=== PATIENT | female | born 1960 | race Caucasian/White ===

== ENCOUNTER 2017-05-20 15:08 | Emergency (ER) | payer OTHER ==
[2017-05-20] MEDS ORDERED: Ondansetron INJ* 2 MG/ML VIAL IV ONE (16:05)
[2017-05-20] MEDS ORDERED: Ketorolac INJ* 30 MG/ML 1 ML VIAL IV PUSH ONE (16:05)
[2017-05-20] MEDS ORDERED: NS 0.9% 1000 ML* 1,000 ML IV ONE ×2 (16:05)
[2017-05-20 16:32] LABS: ABS Basophils 0 10^3/ul (0-0.2); ABS Eosinophils 0 10^3/ul (0-0.6); ABS Lymphocytes 0.6 10^3/ul (1.0-4.8); ABS Monocytes 0.7 10^3/ul (0-0.8); ABS Nucleated RBC 0 10^3/ul; Eosinophil % 0.1 % (0-6); Hematocrit 34 % (35-47); Hemoglobin 11.6 g/dl (12.0-16.0); Lymphocyte % 6.8 % (25-47); Mean Corpuscular HGB Conc 34 g/dl (31-36); Mean Corpuscular Hemoglobin 31 pg (27-31); Mean Corpuscular Volume 90 fL (80-97); Mean Platelet Volume 7 um3 (7.4-10.4); Nucleated Red Blood Cells % 0; Platelet Count 224 10^3/ul (150-450); Red Blood Count 3.77 10^6/ul (4.0-5.4); Red Cell Distribution Width 13 % (10.5-15); White Blood Count 9.4 10^3/ul (3.5-10.8)
[2017-05-20 16:47] LABS: EGFR Non-African American 75.8 (>60)
--- NOTE | 2017-05-20 17:06 | RAD ---
INDICATION: Cough, history of lung cancer. COMPARISON: Comparison is made with a prior chest x-ray study from October 29, [address] of the chest from June 14, 2016. TECHNIQUE: Dual-energy PA and lateral views of the chest were obtained. FINDINGS: There is a power port central venous catheter present on the right side. The catheter tip projects over the region of the superior vena cava. The heart is within normal limits in size. There are extensive postsurgical changes present in the upper portion of the right hemithorax which appears similar to the prior exam. There there is increased density in that region and a small air-fluid level at the right lung apex which is unchanged. There is increased density at the left lung apex which appears similar to the prior CT likely representing apical pleural-parenchymal scarring. The left lung otherwise appears clear. No pleural effusion is seen. IMPRESSION: POSTSURGICAL CHANGES, NO EVIDENCE FOR ACUTE FINDING.
[2017-05-20] MEDS ORDERED: Albuterol/Ipratropium NEB.SOL* Albuterol 2.5 MG/Ipratropium 0.5 MG 3 ML INH ONE (17:15)
[2017-05-20 18:14] LABS: Urine Appearance Clear; Urine Blood 1+ (Negative); Urine Color Yellow; Urine Ketones 1+ (Negative); Urine Protein 1+(30 mg/dL) (Negative); Urine Specific Gravity 1.026 (1.010-1.030); Urine Urobilinogen Negative (Negative)
[2017-05-20 19:22] VITALS: BP 92/45
--- NOTE | 2017-05-28 01:01 | ED ---
Lucas Camargo Natalie, scribed for Rashid Seymour MD on 05/20/17 at 1617 . Influenza-Like Illness - HPI Summary HPI Summary: The pt is a 56 y/o F presenting to the ED c/o weakness and fever of 102F for three days. The pain is rated 9/10 in severity Pt additionally c/o body aches, coughing, back pain, sore throat, runny nose, and chills. Pt denies SOB and ear pain. She did not have a flu vaccine this year. Pt has hx of lung cancer (six years clear), where she had half of her right lung removed. She takes Oxycodone and Gabapentin for cancer. - History of Current Complaint Chief Complaint: EDFever Time Seen by Provider: 05/20/17 15:57 Hx Obtained From: Patient Onset/Duration: Lasting Days - started three days ago, Still Present Severity: Severe Associated Signs & Symptoms: Negative - NEGATIVE: SOB, ear ache, Fever - 102F, Cough, Sore Throat, Nasal Congestion - Allergy/Home Medications Allergies/Adverse Reactions: Allergies Allergy/AdvReac Type Severity Reaction Status Date / Time Morphine Allergy Severe Anaphylatic Verified 05/20/17 15:16 Shock Oxycodone Allergy Vomiting Verified 05/20/17 15:16 PMH/Surg Hx/FS Hx/Imm Hx Previously Healthy: No Endocrine/Hematology History: Denies: Hx Diabetes, Hx Thyroid Disease Cardiovascular History: Denies: Hx Congestive Heart Failure, Hx Hypertension Respiratory History: Denies: Hx Asthma, Hx Chronic Obstructive Pulmonary Disease (COPD) GI History: Denies: Hx Ulcer - Cancer History Cancer Type, Location and Year: right lung carcinoma Hx Chemotherapy: Yes - Surgical History Surgery Procedure, Year, and Place: RIGHT top and part of middle LUNG REMOVED 2011. TUBAL LIGATION 1995. tonsilectomy Infectious Disease History: No Infectious Disease History: Denies: Hx Hepatitis, Hx Human Immunodeficiency Virus (HIV), Traveled Outside the [place] in Last 30 Days - Family History Known Family History: Negative: Hypertension, Diabetes - Social History Alcohol Use: Rare Substance Use Type: Reports: Prescribed Substance Use Comment - Amount & Last Used: oxycotin Smoking Status (MU): Former Smoker Review of Systems Positive: Fever, Chills Positive: Sore Throat, Other - runny nose, nasal congestion. Negative: Ear Ache Positive: Cough. Negative: Shortness Of Breath Positive: Other - body aches, back pain Positive: Weakness All Other Systems Reviewed And Are Negative: Yes Physical Exam Triage Information Reviewed: Yes Vital Signs On Initial Exam: Initial Vitals Temp Pulse Resp BP Pulse Ox 103 F 98 16 103/52 96 05/20/17 15:17 05/20/17 15:17 05/20/17 15:17 05/20/17 15:17 05/20/17 15:17 Vital Signs Reviewed: Yes Appearance: Positive: No Pain Distress, Ill-Appearing Skin: Positive: Warm, Skin Color Reflects Adequate Perfusion, Dry, Other - right posterior chest surgical scar Head/Face: Positive: Normal Head/Face Inspection Eyes: Positive: EOMI, TYLER ENT: Positive: Other - clear nasal discharge, mild erythema of throat Neck: Positive: Supple, Nontender Respiratory/Lung Sounds: Positive: Breath Sounds Present, Other - diminished right base, no wheeze Cardiovascular: Positive: RRR, Pulses are Symmetrical in both Upper and Lower Extremities Abdomen Description: Positive: Nontender, Soft Bowel Sounds: Positive: Present Musculoskeletal: Positive: Normal, Strength/ROM Intact Neurological: Positive: Normal, Sensory/Motor Intact, Alert, Oriented to Person Place, Time - Milena Coma Scale Coma Scale Total: 15 Diagnostics - Vital Signs Vital Signs Temp Pulse Resp BP Pulse Ox 05/20/17 15:17 103 F 98 16 103/52 96 - Laboratory Lab Results: Lab Results 05/20/17 05/20/17 05/20/17 Range/Units 16:20 16:20 16:20 WBC 9.4 (3.5-10.8) 10^3/ul RBC 3.77 L (4.0-5.4) 10^6/ul Hgb 11.6 L (12.0-16.0) g/dl Hct 34 L (35-47) % MCV 90 (80-97) fL MCH 31 (27-31) pg MCHC 34 (31-36) g/dl RDW 13 (10.5-15) % Plt Count 224 (150-450) 10^3/ul MPV 7 L (7.4-10.4) um3 Neut % (Auto) 85.5 H (38-83) % Lymph % (Auto) 6.8 L (25-47) % [place] % (Auto) 7.1 (1-9) % Eos % (Auto) 0.1 (0-6) % Baso % (Auto) 0.5 (0-2) % Absolute Neuts (auto) 8.0 H (1.5-7.7) 10^3/ul Absolute Lymphs (auto) 0.6 L (1.0-4.8) 10^3/ul Absolute Monos (auto) 0.7 (0-0.8) 10^3/ul Absolute Eos (auto) 0 (0-0.6) 10^3/ul Absolute Basos (auto) 0 (0-0.2) 10^3/ul Absolute Nucleated RBC 0 10^3/ul Nucleated RBC % 0 Sodium 135 (133-145) mmol/L Potassium 3.5 (3.5-5.0) mmol/L Chloride 102 (101-111) mmol/L Carbon Dioxide 25 (22-32) mmol/L Anion Gap 8 (2-11) mmol/L BUN 13 (6-24) mg/dL Creatinine 0.79 (0.51-0.95) mg/dL Est GFR ( Amer) 97.5 (>60) Est GFR (Non-Af Amer) 75.8 (>60) BUN/Creatinine Ratio 16.5 (8-20) Glucose 115 H (70-100) mg/dL Lactic Acid 0.5 (0.5-2.0) mmol/L Calcium 9.1 (8.6-10.3) mg/dL Urine Color Urine Appearance Urine pH (5-9) Ur Specific [place] (1.010-1.030) Urine Protein (Negative) Urine Ketones (Negative) Urine Blood (Negative) Urine Nitrate (Negative) Urine Bilirubin (Negative) Urine Urobilinogen (Negative) Ur Leukocyte Esterase (Negative) Urine WBC (Auto) (Absent) Urine RBC (Auto) (Absent) Ur Squamous Epith Cells (Absent) Urine Bacteria (Absent) Urine Glucose (Negative) Influenza A (Rapid) (Negative) Influenza B (Rapid) (Negative) 05/20/17 05/20/17 Range/Units 16:32 17:35 WBC (3.5-10.8) 10^3/ul RBC (4.0-5.4) 10^6/ul Hgb (12.0-16.0) g/dl Hct (35-47) % MCV (80-97) fL MCH (27-31) pg MCHC (31-36) g/dl RDW (10.5-15) % Plt Count (150-450) 10^3/ul MPV (7.4-10.4) um3 Neut % (Auto) (38-83) % Lymph % (Auto) (25-47) % [place] % (Auto) (1-9) % Eos % (Auto) (0-6) % Baso % (Auto) (0-2) % Absolute Neuts (auto) (1.5-7.7) 10^3/ul Absolute Lymphs (auto) (1.0-4.8) 10^3/ul Absolute Monos (auto) (0-0.8) 10^3/ul Absolute Eos (auto) (0-0.6) 10^3/ul Absolute Basos (auto) (0-0.2) 10^3/ul Absolute Nucleated RBC 10^3/ul Nucleated RBC % Sodium (133-145) mmol/L Potassium (3.5-5.0) mmol/L Chloride (101-111) mmol/L Carbon Dioxide (22-32) mmol/L Anion Gap (2-11) mmol/L BUN (6-24) mg/dL Creatinine (0.51-0.95) mg/dL Est GFR ( Amer) (>60) Est GFR (Non-Af Amer) (>60) BUN/Creatinine Ratio (8-20) Glucose (70-100) mg/dL Lactic Acid (0.5-2.0) mmol/L Calcium (8.6-10.3) mg/dL Urine Color Yellow Urine Appearance Clear Urine pH 5.0 (5-9) Ur Specific [place] 1.026 (1.010-1.030) Urine Protein 1+(30 mg/dl) H (Negative) Urine Ketones 1+ H (Negative) Urine Blood 1+ H (Negative) Urine Nitrate Negative (Negative) Urine Bilirubin Negative (Negative) Urine Urobilinogen Negative (Negative) Ur Leukocyte Esterase Negative (Negative) Urine WBC (Auto) Trace(0-5/hpf) (Absent) Urine RBC (Auto) 2+(6-10/hpf) H (Absent) Ur Squamous Epith Cells Present H (Absent) Urine Bacteria Absent (Absent) Urine Glucose Negative (Negative) Influenza A (Rapid) Negative (Negative) Influenza B (Rapid) Negative (Negative) Result Diagrams: 05/20/17 16:20 05/20/17 16:20 Lab Statement: Any lab studies that have been ordered have been reviewed, and results considered in the medical decision making process. - Radiology CXR Xray Interpretation: No Acute Changes - Postsurgical changes, no evidence for acute finding. ED physician has reviewed this report. Radiology Interpretation Completed By: Radiologist Re-Evaluation - Re-Evaluation First Eval Re-Evaluation Time: 19:00 Change: Improved Comment: The patient is feeling better and wants to go home. Flu Symptom Course/Dx - Course Course Of Treatment: Cough, fever with history of cancer. High risk patient. X- ray negative. We'll cover with antibiotics for complicated bronchitis given the cancer history. Improved breathing treatment. Discharged with close follow-up with primary care physician. - Diagnoses Provider Diagnoses: Complicated bronchitis, History of lung cancer Discharge - Discharge Plan Condition: Good Disposition: HOME Prescriptions: Albuterol HFA INHALER* [Ventolin HFA Inhaler*] 2 puff INH Q4H PRN #1 mdi PRN Reason: Shortness Of Breath Benzonatate [TESSALON 200 MG CAP] 200 mg PO TID PRN #20 cap PRN Reason: Cough Levofloxacin TAB* [Levaquin TAB*] 750 mg PO DAILY #5 tab Patient Education Materials: Acute Bronchitis (ED) Referrals: Eitan Enamorado MD [Primary Care Provider] - Additional Instructions: Return with persistent fever, not keeping down fluids, trouble breathing, worse or other concerns as discussed. Drink lots of fluids, Gatorade G2 may help. Tylenol/ibuprofen for discomfort and fever. The documentation as recorded by the Lucas decker Natalie accurately reflects the service I personally performed and the decisions made by , Rashid Seymour MD.
== END 2017-05-20 19:25 | disposition home or self-care (01) ==
LOC: ED 15:08
DX: J40 Bronchitis, not specified as acute or chronic (principal); Z85.118 Personal history of other malignant neoplasm of bronchus and lung; Z87.891 Personal history of nicotine dependence; Z88.5 Allergy status to narcotic agent
CPT/HCPCS: 36415; 71020; 80048; 81003; 81015; 83605; 85025; 87040; 87502; 96361; 96374; 96375; 99283; A9270-GY; J1885; J2405

== ENCOUNTER 2018-04-20 12:28 | Emergency (ER) | payer OTHER ==
[2018-04-20] MEDS ORDERED: Ondansetron INJ* 2 MG/ML VIAL IV ONE (13:12)
[2018-04-20] MEDS ORDERED: Ketorolac INJ* 30 MG/ML 1 ML VIAL IV PUSH ONE (13:12)
[2018-04-20] MEDS ORDERED: Albuterol/Ipratropium NEB.SOL* Albuterol 2.5 MG/Ipratropium 0.5 MG 3 ML INH ONE (13:12)
[2018-04-20] MEDS ORDERED: NS 0.9% 1000 ML* 1,000 ML IV ONE (13:13)
--- NOTE | 2018-04-20 13:19 | UC ---
HPI Febrile Illness - HPI Summary HPI Summary: 57-year-old female with history of right upper pneumonectomy for lung cancer presents with sudden a 10 day history of cough, congestion that has progressed to fever, body aches and worsening over the last 2 days. Patient reports that she no longer smokes however her daughter confirms that she does indeed continue to smoke. She has had nausea with vomiting today. She no longer receives chemotherapy and has been declared cancer free about 6 years ago. No others in the home have been sick. 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 TUBAL LIGATION 1995. tonsilectomy - Family History Known Family History: Negative: Hypertension, Diabetes - Social History Alcohol Use: None Substance Use Type: None Substance Use Comment - Amount & Last Used: oxycotin Smoking Status (MU): Current Some Day Smoker Review of Systems All Other Systems Reviewed And Are Negative: Yes Constitutional: Positive: Fever, Chills, Fatigue Skin: Positive: Negative Eyes: Positive: Negative ENT: Positive: Nasal Discharge, Sinus Congestion, Sinus Pain/Tenderness Respiratory: Positive: Shortness Of Breath, Cough Cardiovascular: Positive: Negative Gastrointestinal: Positive: Vomiting, Nausea. Negative: Abdominal Pain Genitourinary: Positive: Negative Motor: Positive: Negative Neurovascular: Positive: Negative Neurological: Positive: Negative Physical Exam Appearance: Ill-Appearing, Thin Vital Signs: Initial Vital Signs Temp 100.5 F 04/20/18 12:57 Pulse 103 04/20/18 12:57 Resp 20 04/20/18 12:57 BP 109/68 04/20/18 12:57 Pulse Ox 96 04/20/18 12:57 Eye Exam: Normal ENT: Positive: Nasal drainage, TMs normal, Sinus tenderness - Bilateral maxillary and frontal sinuses. Negative: Pharyngeal erythema, Tonsillar swelling, Tonsillar exudate Neck: Positive: Supple, Nontender, No Lymphadenopathy Respiratory: Positive: Other: - Crackles in the right upper lung with pneumonectomy scar Cardiovascular: Positive: No Murmur, Tachycardia Abdomen Description: Positive: Nontender, Soft Musculoskeletal: Positive: Strength Intact, ROM Intact Neurological: Positive: Alert Psychological Exam: Normal Skin Exam: Normal Diagnostics - Radiology chest x-ray Radiology Interpretation Completed By: Radiologist - No acute infiltrate. Calcification right upper lung unchanged from previous Re-Evaluation - Re-Evaluation First Eval Re-Evaluation Time: 13:52 Change: Improved - with fluids, toradol and breathing tx Course/Dx - Course Course Of Treatment: A showed a history of lung cancer presents with URI symptoms, sinus tenderness and fever. Her x-ray is negative for infiltrate. There is significant tenderness in the sinuses and given her fever and history we will cover her with antibiotics. Levaquin started here. Treat symptomatically otherwise. Follow up closely with primary care physician. Stop smoking. - Febrile Illness Differential Diagnoses: Bacteremia, Pneumonia, Sepsis, Viremia, Other: - Sinusitis, URI, influenza - Diagnoses Provider Diagnosis: Acute frontal sinusitis, History of lung cancer in adulthood, Tobacco abuse Discharge - Sign-Out/Discharge Documenting (check all that apply): Patient Departure All imaging exams completed and their final reports reviewed: Yes - Discharge Plan Condition: Improved Disposition: HOME Prescriptions: Albuterol HFA INHALER* [Ventolin HFA Inhaler*] 1 - 2 puff INH Q4H PRN #1 mdi PRN Reason: Sob/Wheezing Benzonatate CAP* [Tessalon 100 MG CAP*] 100 mg PO TID PRN #21 cap PRN Reason: Cough Guaifenesin/Pseudo 600/60(NF) [Mucinex D 600/60 (NF)] 1 tab PO BID #14 tab Levofloxacin TAB* [Levaquin TAB*] 750 mg PO DAILY #6 tab Patient Education Materials: Sinusitis (ED) Forms: *Work Release Referrals: Eitan Enamorado MD [Primary Care Provider] - [facility] [Outside] [facility] [Outside] Additional Instructions: Call Dr. Enamorado today to schedule prompt follow-up. If you no longer see him, primary care physician referral has been given to you. Tylenol, ibuprofen as needed for fever. Drink plenty of fluids. Do not smoke. Humidifier at the bedside while sleeping. Return to ER with difficulty breathing, persistent high fever, worse, new symptoms or other concerns. - Billing Disposition and Condition Condition: IMPROVED Disposition: Home - Attestation Statements Document Initiated by Scribe: No
[2018-04-20] MEDS ORDERED: Levofloxacin TAB* 250 MG PO ONE (13:48)
[2018-04-20 15:48] VITALS: BP 96/38
== END 2018-04-20 15:10 | disposition home or self-care (01) ==
LOC: UCEAST 12:28
DX: J01.10 Acute frontal sinusitis, unspecified (principal); R05 Cough; R11.2 Nausea with vomiting, unspecified; Z85.118 Personal history of other malignant neoplasm of bronchus and lung; Z72.0 Tobacco use; Z88.5 Allergy status to narcotic agent
CPT/HCPCS: 71046; 96360; 96374; 96375; 99212; A9270-GY; G0463; J1885; J2405